=== PATIENT | female | born 1995 | race African-American/Black ===

== ENCOUNTER 2020-05-23 14:57 | Emergency (ER) | payer OTHER ==
[~2020-05-23] VITALS: Ht 167.6 cm; Wt 61.0 kg
[2020-05-23 17:15] LABS: BG BASE EXCESS -0.7 mmol/L (-2.0-2.0); BG CARBOXYHEMOGLOBIN 0.5 % (0.5-1.5); BG DEOXYHEMOGLOBIN 1.3 % (0.0-5.0); BG HCO3 ACT 20.2 mmol/L (22.0-26.0); BG METHEMOGLOBIN 0.3 % (0.0-1.5); BG OXYGEN SATURATION 98.7 % (92.0-98.5); BG OXYHEMOGLOBIN 97.9 % (94.0-97.0); BG PCO2 24.9 mmHg (35.0-45.0); BG PH 7.528 (7.350-7.450); BG PO2 118.1 mmHg (75.0-100.0); BG SAMPLE SITE RIGHT RADIAL; BG TOTAL HEMOGLOBIN 14.9 g/dL (12.0-18.0); BG VENT MODE ROOM AIR
[2020-05-23 18:31] VITALS: BP 122/76
== END 2020-05-23 18:32 | disposition home or self-care (01) ==
LOC: ER 14:57
DX: R06.00 Dyspnea, unspecified (principal); J40 Bronchitis, not specified as acute or chronic
CPT/HCPCS: 36600; 71045; 82375; 82805; 93005; 99285